=== PATIENT | female | born 1940 | race Caucasian/White ===

== ENCOUNTER 2017-06-22 10:32 | Emergency (ER) | payer MEDICARE, OTHER ==
[2017-06-22 12:26] VITALS: BP 140/68
--- NOTE | 2017-06-22 12:26 | UC ---
Lower Extremity/Ankle HPI - HPI Summary HPI Summary: Chronic right knee pain and she has an orthopedic doctor in [place] who injects the knee and is debating replacement. she has had some increased pain in the lateral knee. no new fall or trauma. No calf or thigh pain. she is compliant with xarelto for prior PE. - History of Current Complaint Chief Complaint: UCLowerExtremity Stated Complaint: RIGHT KNEE PAIN Time Seen by Provider: 06/22/17 11:54 Hx Obtained From: Patient, Family/Scale Clerk Onset/Duration: Gradual Onset, Lasting Days Severity Initially: Moderate Severity Currently: Severe Aggravating Factor(s): Standing, Ambulation Alleviating Factor(s): Rest, Elevation Able to Bear Weight: Yes - Allergies/Home Medications Allergies/Adverse Reactions: Allergies Allergy/AdvReac Type Severity Reaction Status Date / Time Phenobarbital Allergy Rash Verified 06/22/17 12:02 Fenofibrate [From Tricor] AdvReac GI Upset Verified 06/22/17 12:02 Tramadol AdvReac GI Upset Verified 06/22/17 12:02 Home Medications: Home Medications ALPRAZolam TAB* [Xanax TAB*] 0.25 mg PO Q6H PRN 06/22/17 [History Confirmed ] Acetaminop/Codeine 30 MG TAB* [Tylenol/Codeine 30 MG TAB*] 1 tab PO Q6H PRN [History Confirmed 06/22/17] Acetaminophen [Acetaminophen Extra Stren] 1,000 mg PO Q6H PRN 06/22/17 [History Confirmed 06/22/17] Bisoprolol & Hydrochlorothiazi [Ziac 5-6.25 mg-] 1 tab PO DAILY 06/22/17 [ History Confirmed 06/22/17] Cetirizine* [ZyrTEC 10 MG TAB*] 10 mg PO DAILY 06/22/17 [History Confirmed 06/22] Escitalopram Oxalate [Lexapro 20 mg] 20 mg PO DAILY 06/22/17 [History Confirmed 06/22/17] Multivitamins/Minerals TAB* [Thera M Plus TAB*] 1 tab PO DAILY 06/22/17 [ History Confirmed 06/22/17] Omeprazole CAP* [Prilosec CAP* 20 MG] 20 mg PO DAILY 06/22/17 [History Confirmed 06/22/17] Rivaroxaban TAB(*) [Xarelto 10 mg (*)] 20 mg PO DAILY 06/22/17 [History Confirmed 06/22/17] Simvastatin TAB(NF) [Zocor(NF)] 20 mg PO DAILY 06/22/17 [History Confirmed 06/22] PMH/Surg Hx/FS Hx/Imm Hx Previously Healthy: No - high chol. - Surgical History Surgical History: Yes Surgery Procedure, Year, and Place: Left TKA, 2014; Foot; Cholecystectomy; Hysterectomy/Appendectomy; Nose; Right Rotator Cuff; Tonsillectomy - Family History Known Family History: Positive: Other - no related knee disease. - Social History Alcohol Use: None Substance Use Type: None Smoking Status (MU): Never Smoked Tobacco Review of Systems Musculoskeletal: Arthralgia All Other Systems Reviewed And Are Negative: Yes Physical Exam Triage Information Reviewed: Yes Appearance: Well-Appearing, Obese Vital Signs Reviewed: Yes ENT Exam: Normal Neck exam: Normal Respiratory Exam: Normal Cardiovascular Exam: Normal Abdominal Exam: Normal Musculoskeletal Exam: Other - No knee effusion or redness. There is lateral knee tenderness. there is no calf or thigh tenderness. no redness or induration. Neurological Exam: Normal Psychological Exam: Normal Skin Exam: Normal Lower Extremity Course/Dx - Differential Dx/Diagnosis Differential Diagnosis/HQI/PQRI: Bursitis, Cellulitis, Compartment Syndrome, Contusion, Dislocation, Fracture (Closed), Fracture (Open), Infection, Osteomyelitis, Puncture Wound, Sprain, Strain, Tendonitis, Tenosynovitis Provider Diagnoses: right knee pain acute on chronic. right knee arthritis. Discharge - Discharge Plan Condition: Good Disposition: HOME Prescriptions: HYDROcodone/ACETAMIN 5-325 MG* [[place] 5-325 TAB*] 1 tab PO Q6H PRN #20 tab MDD 4 PRN Reason: Pain Patient Education Materials: Arthritis (ED) Additional Instructions: use your cane as needed. follow up with your orthopedic doctor in [place] as already planned.
== END 2017-06-22 13:08 | disposition home or self-care (01) ==
LOC: UCCORT 10:32
DX: M25.561 Pain in right knee (principal); M17.11 Unilateral primary osteoarthritis, right knee; E66.9 Obesity, unspecified; Z88.5 Allergy status to narcotic agent
CPT/HCPCS: 99202; G0463